=== PATIENT | male | born 1975 | race Caucasian/White ===

== ENCOUNTER 2017-01-29 20:47 | Emergency (ER) | payer MEDICAID ==
[2017-01-30] MEDS ORDERED: Lidocaine 1% with EPINEPHrine 1:100,000 50 ML MDV INJECT STA (00:07)
[2017-01-30] MEDS ORDERED: Silver Nitrate Applicator Each TOP ONE (00:08)
--- NOTE | 2017-01-30 00:41 | EDM.PDOC ---
ED HPI GENERAL MEDICAL PROBLEM - General Chief Complaint: Laceration Stated Complaint: L RING FINGER CUT Time Seen by Provider: 01/30/17 00:06 Source of Information: Reports: Patient, RN Notes Reviewed History Limitations: Reports: No Limitations - History of Present Illness INITIAL COMMENTS - FREE TEXT/NARRATIVE: 00.06 drove himself here Chief complaint Bleeding wound left ring finger History of present illness 41-year-old male, Moshe, was preparing ribs Accidentally sliced of skin on the tip of his left ring finger. Unable to control bleeding Tetanus status up-to-date History hepatitis B Left 4-Ring finger Pain Score (Numeric/FACES): 3 - Related Data Allergies Allergy/AdvReac Type Severity Reaction Status Date / Time No Known Allergies Allergy Verified 01/29/17 23:39 Home Meds: Home Meds Cyanocobalamin (Vitamin B-12) [Vitamin B-12] 1,000 mcg PO DAILY 02/23/14 [ History] Methadone HCl [Methadone] 87 mg PO DAILY 02/23/14 [History] Multivitamin [Multi Vitamin Daily] 1 each PO BID 02/23/14 [History] Omeprazole [Prilosec] 20 mg PO DAILY 02/23/14 [History] Pedi Multivit #22/Vit D3/Vit K [Multivitamins Chewables Tablet] 1 tab PO BID [History] Vitamin B Complex [B Complex] 1 tab PO DAILY 02/23/14 [History] Amiodarone [Cordarone] 200 mg PO DAILY 01/29/17 [History] Magnesium Oxide [Magnesium] 400 mg PO BID 01/29/17 [History] Ondansetron [Zofran ODT] 4 mg PO ASDIRECTED 01/29/17 [History] Potassium Chloride [Klor-Con M20] 20 meq PO BID 01/29/17 [History] Past Medical History Cardiovascular History: Reports: Heart Murmur, Prior Cardiac Arrest Gastrointestinal History: Reports: Hepatitis Neurological History: Reports: Concussion Psychiatric History: Reports: Addiction - Infectious Disease History Infectious Disease History: Reports: Chicken Pox, Hepatitis B - Past Surgical History GI Surgical History: Reports: Bariatric Procedure Social & Family History - Tobacco Use Smoking Status *Q: Current Every Day Smoker Years of Tobacco use: 19 Packs/Tins Daily: 0.5 Used Tobacco, but Quit: No Second Hand Smoke Exposure: Yes - Caffeine Use Caffeine Use: Reports: Coffee - Alcohol Use Days Per Week of Alcohol Use: 2 Number of Drinks Per Day: 4 Total Drinks Per Week: 8 - Recreational Drug Use Recreational Drug Use: No ED ROS GENERAL - Review of Systems Review Of Systems: ROS reveals no pertinent complaints other than HPI. Skin: Reports: Other (wound left ring finger) ED EXAM, SKIN/RASH Exam: See Below Exam Limited By: No Limitations General Appearance: Alert, No Apparent Distress, Other (mild elevation blood pressure otherwise vital signs normal, wound confined to left ring finger) Respiratory/Chest: No Respiratory Distress Cardiovascular: Normal Peripheral Pulses, Regular Rate, Rhythm Extremities: Other (skin avulsion 0.7 x 0.7 cm tip of left ring finger, no tendon fingernail involvement) Neurological: Alert, Oriented Skin: Warm, Normal Color, No Rash Course - Vital Signs Last Recorded V/S: Last Vital Signs Temp 36.5 C 01/29/17 23:43 Pulse 69 01/29/17 23:43 Resp 16 01/29/17 23:43 BP 148/84 H 01/29/17 23:43 Pulse Ox 99 01/29/17 23:43 - Orders/Labs/Meds Meds: Medications Discontinued Medications Generic Name Dose Route Start Last Admin Trade Name Reema PRN Reason Stop Dose Admin Lidocaine/Epinephrine 2 ml 01/30/17 00:07 01/30/17 00:32 Xylocaine 1% With Epinephrine 1:100,000 INJECT 01/30/17 00:08 2 ml ONETIME STA Administration Silver Nitrate 1 each 01/30/17 00:08 01/30/17 00:31 Silver Nitrate TOP 01/30/17 00:09 1 each ONETIME ONE Administration - Re-Assessments/Exams Free Text/Narrative Re-Assessment/Exam: 01/30/17 00:40 41-year-old male with work-related evulsion laceration of skin of the tip of the left ring finger Not suturable Cleansed with Hibiclens 1% lidocaine with epinephrine local Silver nitrate cautery Dressing with nonstick materials Note for work Departure - Departure Time of Disposition: 00:42 Disposition: Home, Self-Care 01 Condition: Good Clinical Impression: Laceration of finger of left hand without damage to nail Qualifiers: Encounter type: initial encounter Finger: ring finger Foreign body presence: without foreign body Qualified Code(s): S61.215A - Laceration without foreign body of left ring finger without damage to nail, initial encounter - Discharge Information Instructions: Laceration Care, Adult, [id number] Referrals: Mirna Phan NP [Primary Care Provider] - Forms: ED Department Discharge, ED Return to Work/School Form Additional Instructions: leave dressing in place at least 24 hours before changing It's anticipated there will still be some blood oozing from the finger so make sure you use a fingertip styled bandage which will fit the finger better. your tetanus status is up-to-date there is a note for 2 days off work
== END 2017-01-30 01:07 | disposition home or self-care (01) ==
LOC: JP.ED 20:47
DX: S61.215A Laceration without foreign body of left ring finger without damage to nail, initial encounter (principal); W45.8XXA Other foreign body or object entering through skin, initial encounter; Z79.899 Other long term (current) drug therapy; F17.210 Nicotine dependence, cigarettes, uncomplicated
CPT/HCPCS: 12001; 99282; 99283; A4217

== ENCOUNTER 2017-09-11 10:59 | Emergency (ER) | payer MEDICAID ==
--- NOTE | 2017-09-11 12:57 | EDM.PDOC ---
ED HPI GENERAL MEDICAL PROBLEM - General Chief Complaint: Gastrointestinal Problem Stated Complaint: BLEEDING FROM BACK SIDE Time Seen by Provider: 09/11/17 12:40 Source of Information: Reports: Patient History Limitations: Reports: No Limitations - History of Present Illness INITIAL COMMENTS - FREE TEXT/NARRATIVE: 42 yo male presents after passing some blood into his clothing while at work today. Has no hx of this in the past. Did pass a very large stool yesterday. Has no hx of hemorrhoids. No FHx of colonic issues. No abdominal pain. Drinks heavily since coming off his methadone. Not taking any NSAID's or anticoagulants. Platelets 02/03/14 were 260k Onset: Today Onset Date: 09/11/17 Onset Time: 11:00 Duration: Minutes:, Resolved Prior to Arrival Location: Reports: Other (rectal) - Related Data Allergies Allergy/AdvReac Type Severity Reaction Status Date / Time No Known Allergies Allergy Verified 09/11/17 12:16 Home Meds: Home Meds Cyanocobalamin (Vitamin B-12) [Vitamin B-12] 1,000 mcg PO DAILY 02/23/14 [ History] Methadone HCl [Methadone] 87 mg PO DAILY 02/23/14 [History] Multivitamin [Multi Vitamin Daily] 1 each PO BID 02/23/14 [History] Omeprazole [Prilosec] 20 mg PO DAILY 02/23/14 [History] Pedi Multivit #22/Vit D3/Vit K [Multivitamins Chewables Tablet] 1 tab PO BID [History] Vitamin B Complex [B Complex] 1 tab PO DAILY 02/23/14 [History] Amiodarone [Cordarone] 200 mg PO DAILY 01/29/17 [History] Magnesium Oxide [Magnesium] 400 mg PO BID 01/29/17 [History] Ondansetron [Zofran ODT] 4 mg PO ASDIRECTED 01/29/17 [History] Potassium Chloride [Klor-Con M20] 20 meq PO BID 01/29/17 [History] Past Medical History Cardiovascular History: Reports: Heart Murmur, Prior Cardiac Arrest Gastrointestinal History: Reports: Hepatitis Neurological History: Reports: Concussion Psychiatric History: Reports: Addiction - Infectious Disease History Infectious Disease History: Reports: Hepatitis B - Past Surgical History GI Surgical History: Reports: Bariatric Procedure Social & Family History - Tobacco Use Smoking Status *Q: Unknown Ever Smoked - Caffeine Use Caffeine Use: Reports: Coffee ED ROS GENERAL - Review of Systems Review Of Systems: See Below Constitutional: Reports: No Symptoms HEENT: Reports: No Symptoms Respiratory: Reports: No Symptoms Cardiovascular: Reports: No Symptoms Endocrine: Reports: No Symptoms GI/Abdominal: Reports: Other (dark red blood only per rectum, not during a BM, just leaked out onto his shorts.) : Reports: No Symptoms Musculoskeletal: Reports: No Symptoms Skin: Reports: No Symptoms Neurological: Reports: No Symptoms ED EXAM, GI/ABD - Physical Exam Exam: See Below Exam Limited By: No Limitations General Appearance: Alert, WD/WN, No Apparent Distress Eyes: Bilateral: Normal Appearance Ears: Normal External Exam, Normal Canal, Hearing Grossly Normal, Normal TMs Nose: Normal Inspection, Normal Mucosa, No Blood Throat/Mouth: Normal Inspection, Normal Lips, Normal Oropharynx, Normal Voice, No Airway Compromise Head: Atraumatic, Normocephalic Neck: Normal Inspection Respiratory/Chest: No Respiratory Distress, Lungs Clear, Normal Breath Sounds, No Accessory Muscle Use Cardiovascular: Regular Rate, Rhythm, No Edema GI/Abdominal Exam: Normal Bowel Sounds, Soft, Non-Tender, No Distention Back Exam: Normal Inspection. No: CVA Tenderness (R), CVA Tenderness (L) Extremities: Other (many bilateral LE varicosities.) Neurological: Alert, Oriented, CN II-XII Intact, Normal Cognition, No Motor/ Sensory Deficits Psychiatric: Normal Affect, Normal Mood Skin Exam: Warm, Dry, Intact, Normal Color, No Rash Lymphatic: No Adenopathy Course - Vital Signs Last Recorded V/S: Last Vital Signs Temp 36.4 C 09/11/17 12:16 Pulse 72 09/11/17 12:16 Resp 16 09/11/17 12:16 BP 139/85 09/11/17 12:16 Pulse Ox 97 09/11/17 12:16 Orthostatic Blood Pressure [ 122/86 Standing] Orthostatic Blood Pressure [ 133/80 Sitting] Orthostatic Blood Pressure [ 134/78 Supine] - Orders/Labs/Meds Orders: Active Orders 24 hr Category Date Time Status Orthostatic Vital Signs [RC] ASDIRECTED Care 09/11/17 12:46 Active Labs: Laboratory Tests 09/11/17 09/11/17 Range/Units 12:52 12:52 WBC 4.6 (4.5-11.0) K/uL RBC 4.82 (4.30-5.90) M/uL Hgb 14.4 (12.0-15.0) g/dL Hct 41.8 (40.0-54.0) % MCV 87 (80-98) fL MCH 30 (27-31) pg MCHC 34 (32-36) % Plt Count 77 L (150-400) K/uL Sodium 142 (140-148) mmol/L Potassium 3.9 (3.6-5.2) mmol/L Chloride 107 (100-108) mmol/L Carbon Dioxide 22 (21-32) mmol/L Anion Gap 13.1 (5.0-14.0) mmol/L BUN 8 (7-18) mg/dL Creatinine 0.8 (0.8-1.3) mg/dL Est Cr Clr Drug Dosing 120.29 mL/min Estimated GFR (MDRD) > 60 (>60) Glucose 104 (74-106) mg/dL Calcium 8.7 (8.5-10.1) mg/dL Total Bilirubin 0.9 (0.2-1.0) mg/dL AST 44 H (15-37) U/L ALT 26 (12-78) U/L Alkaline Phosphatase 103 (46-116) U/L Total Protein 7.8 (6.4-8.2) g/dL Albumin 3.4 (3.4-5.0) g/dL Globulin 4.4 H (2.3-3.5) g/dL Albumin/Globulin Ratio 0.8 L (1.2-2.2) Departure - Departure Time of Disposition: 13:45 Disposition: Home, Self-Care 01 Condition: Fair Clinical Impression: Rectal bleeding, Excessive drinking alcohol - Discharge Information Referrals: PCP,None [Primary Care Provider] - Forms: ED Department Discharge - My Orders Last 24 Hours: My Active Orders 09/11/17 12:46 Orthostatic Vital Signs [RC] ASDIRECTED - Assessment/Plan Last 24 Hours: My Active Orders 09/11/17 12:46 Orthostatic Vital Signs [RC] ASDIRECTED
== END 2017-09-11 13:53 | disposition home or self-care (01) ==
LOC: JP.ED 10:59
DX: K62.5 Hemorrhage of anus and rectum (principal); Z79.899 Other long term (current) drug therapy
CPT/HCPCS: 36415; 80053; 85027; 99284

== ENCOUNTER 2019-06-03 16:16 | Emergency (ER) | payer MEDICAID ==
--- NOTE | 2019-06-03 16:29 | EDM.PDOCBH ---
ED HPI GENERAL MEDICAL PROBLEM - General Chief Complaint: Drug or Alcohol Abuse Stated Complaint: MEDICAL VIA [facility] Time Seen by Provider: 06/03/19 16:23 Source of Information: Reports: Patient History Limitations: Reports: No Limitations - History of Present Illness INITIAL COMMENTS - FREE TEXT/NARRATIVE: pt arrived fter injecting 115 mg of methadone in his leg vein. His saw him do thois and watched him. He was passed out shortly and she gave him narcan. Pt also did some drinking 3-4 drinks today. He has not been part of the methadone program. He has been completely off of everything. Onset: Today, Sudden Duration: Hour(s): Location: Reports: Generalized, Other (pt injected 115 mg of metadone iv. He has not used for a long time so this appeared to hit him hard. He has injected methadone in the past. ) - Related Data Allergies Allergy/AdvReac Type Severity Reaction Status Date / Time No Known Allergies Allergy Verified 02/20/18 09:54 Home Meds: Home Meds Cyanocobalamin (Vitamin B-12) [Vitamin B-12] 1,000 mcg PO DAILY 02/23/14 [ History] Multivitamin [Multi Vitamin Daily] 1 each PO BID 02/23/14 [History] Omeprazole [Prilosec] 20 mg PO DAILY 02/23/14 [History] Pedi Multivit #22/Vit D3/Vit K [Multivitamins Chewables Tablet] 1 tab PO BID [History] Vitamin B Complex [B Complex] 1 tab PO DAILY 02/23/14 [History] Amiodarone [Cordarone] 200 mg PO DAILY 01/29/17 [History] Magnesium Oxide [Magnesium] 400 mg PO BID 01/29/17 [History] Ondansetron [Zofran ODT] 4 mg PO ASDIRECTED 01/29/17 [History] Potassium Chloride [Klor-Con M20] 20 meq PO BID 01/29/17 [History] Past Medical History Cardiovascular History: Reports: Heart Murmur, Prior Cardiac Arrest Gastrointestinal History: Reports: Hepatitis Neurological History: Reports: Concussion Psychiatric History: Reports: Addiction Endocrine/Metabolic History: Reports: Obesity/BMI 30+ - Infectious Disease History Infectious Disease History: Reports: Hepatitis B - Past Surgical History GI Surgical History: Reports: Bariatric Procedure Social & Family History - Caffeine Use Caffeine Use: Reports: Coffee ED ROS GENERAL - Review of Systems Review Of Systems: See Below Constitutional: Reports: Other (pt passed out after injecting methadone. ) HEENT: Reports: No Symptoms Respiratory: Reports: No Symptoms Cardiovascular: Reports: No Symptoms Endocrine: Reports: No Symptoms GI/Abdominal: Reports: No Symptoms Musculoskeletal: Reports: No Symptoms Skin: Reports: No Symptoms ED EXAM, BEHAVIORAL HEALTH - Physical Exam Exam: See Below Text/Narrative:: pt became unresponsive. after injecting 115 of methadone IV. He also had 3-4 drinks. He has been clean for 3.5 monthes, bnot using anything. Exam Limited By: No Limitations General Appearance: Alert, No Apparent Distress, Other (pupils show very small pupils. ) Ears: Normal TMs Nose: Normal Inspection Throat/Mouth: Normal Inspection Head: Atraumatic Neck: Normal Inspection Respiratory/Chest: No Respiratory Distress Cardiovascular: Regular Rate, Rhythm GI/Abdominal: Soft, Non-Tender (Male) Exam: Deferred Rectal (Males) Exam: Deferred Back Exam: Normal Inspection Extremities: Normal Inspection Neurological: Alert, Normal Cognition, Oriented x 3, Other (pt has had 2 doses of narcan. ) Psychiatric: Alert, Normal Cognition COURSE, BEHAVIORAL HEALTH COMP - Course Vital Signs: Last Vital Signs Temp 35.5 C L 06/03/19 16:23 Pulse 81 06/03/19 16:23 Resp 20 06/03/19 16:23 BP 140/91 H 06/03/19 16:23 Pulse Ox 92 L 06/03/19 16:23 Orders, Labs, Meds: Active Orders 24 hr Category Date Time Status Sodium Chloride 0.9% [Normal Saline] 1,000 ml Med 06/03/19 16:30 Active IV ASDIRECTED Sodium Chloride 0.9% [Normal Saline] 1,000 ml Med 06/03/19 17:15 Active IV ASDIRECTED Medication Orders Sodium Chloride (Normal Saline) 1,000 mls @ 999 mls/hr IV ASDIRECTED SHAKIRA Last Admin: 06/03/19 16:58 Dose: 999 mls/hr Sodium Chloride (Normal Saline) 1,000 mls @ 999 mls/hr IV ASDIRECTED SHAKIRA Laboratory Tests 06/03/19 06/03/19 06/03/19 Range/Units 16:20 16:22 16:31 WBC 8.9 (4.5-11.0) K/uL RBC 4.63 (4.30-5.90) M/uL Hgb 12.0 D (12.0-15.0) g/dL Hct 37.6 L (40.0-54.0) % MCV 81 (80-98) fL MCH 26 L (27-31) pg MCHC 32 (32-36) % Plt Count 140 L (150-400) K/uL Neut % (Auto) 72 H (36-66) % Lymph % (Auto) 17 L (24-44) % [place] % (Auto) 9 H (2-6) % Eos % (Auto) 2 (2-4) % Baso % (Auto) 1 (0-1) % Sodium (140-148) mmol/L Potassium (3.6-5.2) mmol/L Chloride (100-108) mmol/L Carbon Dioxide (21-32) mmol/L Anion Gap (5.0-14.0) mmol/L BUN (7-18) mg/dL Creatinine (0.8-1.3) mg/dL Est Cr Clr Drug Dosing mL/min Estimated GFR (MDRD) (>60) Glucose (74-106) mg/dL Calcium (8.5-10.1) mg/dL Total Bilirubin (0.2-1.0) mg/dL AST (15-37) U/L ALT (12-78) U/L Alkaline Phosphatase (46-116) U/L Total Protein (6.4-8.2) g/dL Albumin (3.4-5.0) g/dL Globulin (2.3-3.5) g/dL Albumin/Globulin Ratio (1.2-2.2) Urine Color Yellow (YELLOW) Urine Appearance Clear (CLEAR) Urine pH 5.0 (5.0-8.0) Ur Specific [place] >= 1.030 (1.008-1.030) Urine Protein 30 H (NEGATIVE) mg/dL Urine Glucose (UA) Negative (NEGATIVE) mg/dL Urine Ketones Negative (NEGATIVE) mg/dL Urine Occult Blood Negative (NEGATIVE) Urine Nitrite Negative (NEGATIVE) Urine Bilirubin Negative (NEGATIVE) Urine Urobilinogen 0.2 (0.2-1.0) EU/dL Ur Leukocyte Esterase Negative (NEGATIVE) Urine RBC 0-5 (0-5) Urine WBC Not seen (0-5) Ur Epithelial Cells Not seen Amorphous Sediment Many Urine Bacteria Not seen Urine Mucus Not seen Urine Opiates Screen Negative (NEGATIVE) Ur Oxycodone Screen Presumptive positive H (NEGATIVE) Urine Methadone Screen Presumptive positive H (NEGATIVE) Ur Propoxyphene Screen Negative (NEGATIVE) Ur Barbiturates Screen Negative (NEGATIVE) Ur Tricyclics Screen Negative (NEGATIVE) Ur Phencyclidine Scrn Negative (NEGATIVE) Ur Amphetamine Screen Negative (NEGATIVE) U Methamphetamines Scrn Negative (NEGATIVE) Urine MDMA Screen Negative (NEGATIVE) U Benzodiazepines Scrn Negative (NEGATIVE) U Cocaine Metab Screen Negative (NEGATIVE) U Marijuana (THC) Screen Negative (NEGATIVE) Ethyl Alcohol mg/dL 06/03/19 06/03/19 Range/Units 16:31 16:31 WBC (4.5-11.0) K/uL RBC (4.30-5.90) M/uL Hgb (12.0-15.0) g/dL Hct (40.0-54.0) % MCV (80-98) fL MCH (27-31) pg MCHC (32-36) % Plt Count (150-400) K/uL Neut % (Auto) (36-66) % Lymph % (Auto) (24-44) % [place] % (Auto) (2-6) % Eos % (Auto) (2-4) % Baso % (Auto) (0-1) % Sodium 141 (140-148) mmol/L Potassium 3.5 L (3.6-5.2) mmol/L Chloride 104 (100-108) mmol/L Carbon Dioxide 23 (21-32) mmol/L Anion Gap 17.5 H (5.0-14.0) mmol/L BUN 10 (7-18) mg/dL Creatinine 0.9 (0.8-1.3) mg/dL Est Cr Clr Drug Dosing 108.15 mL/min Estimated GFR (MDRD) > 60 (>60) Glucose 93 (74-106) mg/dL Calcium 8.3 L (8.5-10.1) mg/dL Total Bilirubin 1.1 H (0.2-1.0) mg/dL AST 42 H (15-37) U/L ALT 24 (12-78) U/L Alkaline Phosphatase 160 H (46-116) U/L Total Protein 8.3 H (6.4-8.2) g/dL Albumin 3.3 L (3.4-5.0) g/dL Globulin 5.0 H (2.3-3.5) g/dL Albumin/Globulin Ratio 0.7 L (1.2-2.2) Urine Color (YELLOW) Urine Appearance (CLEAR) Urine pH (5.0-8.0) Ur Specific [place] (1.008-1.030) Urine Protein (NEGATIVE) mg/dL Urine Glucose (UA) (NEGATIVE) mg/dL Urine Ketones (NEGATIVE) mg/dL Urine Occult Blood (NEGATIVE) Urine Nitrite (NEGATIVE) Urine Bilirubin (NEGATIVE) Urine Urobilinogen (0.2-1.0) EU/dL Ur Leukocyte Esterase (NEGATIVE) Urine RBC (0-5) Urine WBC (0-5) Ur Epithelial Cells Amorphous Sediment Urine Bacteria Urine Mucus Urine Opiates Screen (NEGATIVE) Ur Oxycodone Screen (NEGATIVE) Urine Methadone Screen (NEGATIVE) Ur Propoxyphene Screen (NEGATIVE) Ur Barbiturates Screen (NEGATIVE) Ur Tricyclics Screen (NEGATIVE) Ur Phencyclidine Scrn (NEGATIVE) Ur Amphetamine Screen (NEGATIVE) U Methamphetamines Scrn (NEGATIVE) Urine MDMA Screen (NEGATIVE) U Benzodiazepines Scrn (NEGATIVE) U Cocaine Metab Screen (NEGATIVE) U Marijuana (THC) Screen (NEGATIVE) Ethyl Alcohol 116 mg/dL Medications Generic Name Dose Route Start Last Admin Trade Name Freq PRN Reason Stop Dose Admin Sodium Chloride 1,000 mls @ 999 mls/hr 06/03/19 16:30 06/03/19 16:58 Normal Saline IV 999 mls/hr ASDIRECTED SHAKIRA Administration Sodium Chloride 1,000 mls @ 999 mls/hr 06/03/19 17:15 Normal Saline IV ASDIRECTED SHAKIRA Discontinued Medications Generic Name Dose Route Start Last Admin Trade Name Freq PRN Reason Stop Dose Admin Naloxone HCl 0.4 mg 06/03/19 16:30 06/03/19 16:51 Narcan IVPUSH 06/03/19 16:31 0.4 mg ONETIME ONE Administration Medical Clearance: 06/03/19 17:16 pt has had atotal of 3 does of narcan. He is aklert and pleasant at this time. He will be given 2 liters of fluid and may need a narcan drip if having symproms. Departure - Departure Time of Disposition: 17:17 Disposition: Admitted As Inpatient 66 Condition: Fair Clinical Impression: Methadone overdose, Intoxication - Discharge Information Referrals: PCP,None [Primary Care Provider] - Forms: ED Department Discharge Care Plan Goals: admit to Dr Cain. Sepsis Event Note - Focused Exam Vital Signs: Vital Signs Temp Pulse Resp BP Pulse Ox 06/03/19 16:23 35.5 C L 81 20 140/91 H 92 L 06/03/19 16:18 35.0 C L 83 16 152/92 H 95 Date Exam was Performed: 06/03/19 Time Exam was Performed: 17:16 - My Orders Last 24 Hours: My Active Orders 06/03/19 16:30 Sodium Chloride 0.9% [Normal Saline] 1,000 ml IV ASDIRECTED 06/03/19 17:15 Sodium Chloride 0.9% [Normal Saline] 1,000 ml IV ASDIRECTED - Assessment/Plan Last 24 Hours: My Active Orders 06/03/19 16:30 Sodium Chloride 0.9% [Normal Saline] 1,000 ml IV ASDIRECTED 06/03/19 17:15 Sodium Chloride 0.9% [Normal Saline] 1,000 ml IV ASDIRECTED
[2019-06-03] MEDS ORDERED: Naloxone 0.4 MG/ML SDV IVPUSH ONE (16:30)
[2019-06-03] MEDS ORDERED: Sodium Chloride 0.9% 1,000 ML IV SCH ×2 (16:30→17:15)
--- NOTE | 2019-06-03 17:50 | PCM.HP.2 ---
H&P History of Present Illness - General Date of Service: 06/03/19 Admit Problem/Dx: Admission Diagnosis/Problem Admission Diagnosis/Problem Drug overdose Source of Information: Patient, Provider History Limitations: Reports: No Limitations - History of Present Illness Initial Comments - Free Text/Narative: CC: I was stupid HPI: Ismael presented to the emergency room today after shortly after injecting methadone into a vein in his leg. After he passed out his called 911. She did give him Narcan (she has some available since she is on the methadone program). He received a second dose of Narcan in the ambulance on the way here. At this time he says he feels fine. No complaints of headache , blurry vision, chest pain or shortness of breath. No abdominal pain or nausea. He has not had any fevers. Poison control was contacted and they recommended admission for observation overnight given the large quantity of methadone injected intravenously. Work-up in the emergency room suggested mild intoxication and mild dehydration. Vital signs have been stable. He has not been hypoxic. He will be admitted for observation per poison control recommendations. - Related Data Allergies/Adverse Reactions: Allergies Allergy/AdvReac Type Severity Reaction Status Date / Time No Known Allergies Allergy Verified 02/20/18 09:54 Home Medications: Home Meds Cyanocobalamin (Vitamin B-12) [Vitamin B-12] 1,000 mcg PO DAILY 02/23/14 [ History] Multivitamin [Multi Vitamin Daily] 1 each PO BID 02/23/14 [History] Omeprazole [Prilosec] 20 mg PO DAILY 02/23/14 [History] Pedi Multivit #22/Vit D3/Vit K [Multivitamins Chewables Tablet] 1 tab PO BID [History] Vitamin B Complex [B Complex] 1 tab PO DAILY 02/23/14 [History] Amiodarone [Cordarone] 200 mg PO DAILY 01/29/17 [History] Magnesium Oxide [Magnesium] 400 mg PO BID 01/29/17 [History] Ondansetron [Zofran ODT] 4 mg PO ASDIRECTED 01/29/17 [History] Potassium Chloride [Klor-Con M20] 20 meq PO BID 01/29/17 [History] Past Medical History Other HEENT History: bloody lip Cardiovascular History: Reports: Heart Murmur, Prior Cardiac Arrest Gastrointestinal History: Reports: Hepatitis Neurological History: Reports: Concussion Psychiatric History: Reports: Addiction Endocrine/Metabolic History: Reports: Obesity/BMI 30+ - Infectious Disease History Infectious Disease History: Reports: Hepatitis B - Past Surgical History GI Surgical History: Reports: Bariatric Procedure Social & Family History - Tobacco Use Years of Tobacco use: 25 Packs/Tins Daily: 0.2 - Caffeine Use Caffeine Use: Reports: Coffee - Alcohol Use Days Per Week of Alcohol Use: 1 Number of Drinks Per Day: 3 Total Drinks Per Week: 3 Date of Last Drink: 06/03/19 - Recreational Drug Use Recreational Drug Use: Yes Recreational Drug Type: Reports: Methamphetamine Recreational Drug Use Frequency: Daily H&P Review of Systems - Review of Systems: Review Of Systems: See Below Free Text/Narrative: A complete 12 point review of systems was obtained. Pertinent positives and negatives are noted in the history of present illness. All other systems were reviewed and were negative except as noted. Exam - Exam Exam: See Below - Vital Signs Vital Signs: Last Vital Signs Temp 35.5 C L 06/03/19 16:23 Pulse 81 06/03/19 16:23 Resp 20 06/03/19 16:23 BP 140/91 H 06/03/19 16:23 Pulse Ox 92 L 06/03/19 16:23 Weight: 102.058 kg - Exam Quality Assessment: No: Supplemental Oxygen General: Alert, Oriented, Cooperative. No: Mild Distress HEENT: Conjunctiva Clear, Other (lips cracked and bleeding ). No: Mucosa Moist & Bladen (dry), Scleral Icterus Neck: Supple, Trachea Midline Lungs: Clear to Auscultation, Normal Respiratory Effort Cardiovascular: Regular Rate, Regular Rhythm, Systolic Murmur GI/Abdominal Exam: Normal Bowel Sounds, Soft, No Distention Extremities: No Pedal Edema. No: Increased Warmth Skin: Warm, Dry Neuro Extensive - Mental Status: Alert, Oriented x3, Nl Response to Commands Neuro Extensive - Motor, Sensory, Reflexes: No: Dysarthria, Abnormal Motor Psychiatric: Alert, Normal Affect - Patient Data Lab Results Last 24 hrs: Laboratory Results - last 24 hr 06/03/19 06/03/19 06/03/19 Range/Units 16:20 16:22 16:31 WBC 8.9 (4.5-11.0) K/uL RBC 4.63 (4.30-5.90) M/uL Hgb 12.0 D (12.0-15.0) g/dL Hct 37.6 L (40.0-54.0) % MCV 81 (80-98) fL MCH 26 L (27-31) pg MCHC 32 (32-36) % Plt Count 140 L (150-400) K/uL Neut % (Auto) 72 H (36-66) % Lymph % (Auto) 17 L (24-44) % [place] % (Auto) 9 H (2-6) % Eos % (Auto) 2 (2-4) % Baso % (Auto) 1 (0-1) % Sodium (140-148) mmol/L Potassium (3.6-5.2) mmol/L Chloride (100-108) mmol/L Carbon Dioxide (21-32) mmol/L Anion Gap (5.0-14.0) mmol/L BUN (7-18) mg/dL Creatinine (0.8-1.3) mg/dL Est Cr Clr Drug Dosing mL/min Estimated GFR (MDRD) (>60) Glucose (74-106) mg/dL Calcium (8.5-10.1) mg/dL Total Bilirubin (0.2-1.0) mg/dL AST (15-37) U/L ALT (12-78) U/L Alkaline Phosphatase (46-116) U/L Total Protein (6.4-8.2) g/dL Albumin (3.4-5.0) g/dL Globulin (2.3-3.5) g/dL Albumin/Globulin Ratio (1.2-2.2) Urine Color Yellow (YELLOW) Urine Appearance Clear (CLEAR) Urine pH 5.0 (5.0-8.0) Ur Specific [place] >= 1.030 (1.008-1.030) Urine Protein 30 H (NEGATIVE) mg/dL Urine Glucose (UA) Negative (NEGATIVE) mg/dL Urine Ketones Negative (NEGATIVE) mg/dL Urine Occult Blood Negative (NEGATIVE) Urine Nitrite Negative (NEGATIVE) Urine Bilirubin Negative (NEGATIVE) Urine Urobilinogen 0.2 (0.2-1.0) EU/dL Ur Leukocyte Esterase Negative (NEGATIVE) Urine RBC 0-5 (0-5) Urine WBC Not seen (0-5) Ur Epithelial Cells Not seen Amorphous Sediment Many Urine Bacteria Not seen Urine Mucus Not seen Urine Opiates Screen Negative (NEGATIVE) Ur Oxycodone Screen Presumptive positive H (NEGATIVE) Urine Methadone Screen Presumptive positive H (NEGATIVE) Ur Propoxyphene Screen Negative (NEGATIVE) Ur Barbiturates Screen Negative (NEGATIVE) Ur Tricyclics Screen Negative (NEGATIVE) Ur Phencyclidine Scrn Negative (NEGATIVE) Ur Amphetamine Screen Negative (NEGATIVE) U Methamphetamines Scrn Negative (NEGATIVE) Urine MDMA Screen Negative (NEGATIVE) U Benzodiazepines Scrn Negative (NEGATIVE) U Cocaine Metab Screen Negative (NEGATIVE) U Marijuana (THC) Screen Negative (NEGATIVE) Ethyl Alcohol mg/dL 06/03/19 06/03/19 Range/Units 16:31 16:31 WBC (4.5-11.0) K/uL RBC (4.30-5.90) M/uL Hgb (12.0-15.0) g/dL Hct (40.0-54.0) % MCV (80-98) fL MCH (27-31) pg MCHC (32-36) % Plt Count (150-400) K/uL Neut % (Auto) (36-66) % Lymph % (Auto) (24-44) % [place] % (Auto) (2-6) % Eos % (Auto) (2-4) % Baso % (Auto) (0-1) % Sodium 141 (140-148) mmol/L Potassium 3.5 L (3.6-5.2) mmol/L Chloride 104 (100-108) mmol/L Carbon Dioxide 23 (21-32) mmol/L Anion Gap 17.5 H (5.0-14.0) mmol/L BUN 10 (7-18) mg/dL Creatinine 0.9 (0.8-1.3) mg/dL Est Cr Clr Drug Dosing 108.15 mL/min Estimated GFR (MDRD) > 60 (>60) Glucose 93 (74-106) mg/dL Calcium 8.3 L (8.5-10.1) mg/dL Total Bilirubin 1.1 H (0.2-1.0) mg/dL AST 42 H (15-37) U/L ALT 24 (12-78) U/L Alkaline Phosphatase 160 H (46-116) U/L Total Protein 8.3 H (6.4-8.2) g/dL Albumin 3.3 L (3.4-5.0) g/dL Globulin 5.0 H (2.3-3.5) g/dL Albumin/Globulin Ratio 0.7 L (1.2-2.2) Urine Color (YELLOW) Urine Appearance (CLEAR) Urine pH (5.0-8.0) Ur Specific [place] (1.008-1.030) Urine Protein (NEGATIVE) mg/dL Urine Glucose (UA) (NEGATIVE) mg/dL Urine Ketones (NEGATIVE) mg/dL Urine Occult Blood (NEGATIVE) Urine Nitrite (NEGATIVE) Urine Bilirubin (NEGATIVE) Urine Urobilinogen (0.2-1.0) EU/dL Ur Leukocyte Esterase (NEGATIVE) Urine RBC (0-5) Urine WBC (0-5) Ur Epithelial Cells Amorphous Sediment Urine Bacteria Urine Mucus Urine Opiates Screen (NEGATIVE) Ur Oxycodone Screen (NEGATIVE) Urine Methadone Screen (NEGATIVE) Ur Propoxyphene Screen (NEGATIVE) Ur Barbiturates Screen (NEGATIVE) Ur Tricyclics Screen (NEGATIVE) Ur Phencyclidine Scrn (NEGATIVE) Ur Amphetamine Screen (NEGATIVE) U Methamphetamines Scrn (NEGATIVE) Urine MDMA Screen (NEGATIVE) U Benzodiazepines Scrn (NEGATIVE) U Cocaine Metab Screen (NEGATIVE) U Marijuana (THC) Screen (NEGATIVE) Ethyl Alcohol 116 mg/dL Result Diagrams: 06/03/19 16:31 06/03/19 16:31 Sepsis Event Note - Evaluation Sepsis Screening Result: No Definite Risk - Focused Exam Vital Signs: Vital Signs Temp Pulse Resp BP Pulse Ox 06/03/19 16:23 35.5 C L 81 20 140/91 H 92 L 06/03/19 16:18 35.0 C L 83 16 152/92 H 95 Date Exam was Performed: 06/03/19 Time Exam was Performed: 18:40 *Q Meaningful Use (ADM) - VTE Risk Assess *Q Each Risk Factor Represents 1 Point: Age 41 - 59 years, Obesity ( BMI > 25 kg/m2 ) Total Score 1 Point Risk Factors: 2 Each Risk Factor Represents 2 Points: None Total Score 2 Point Risk Factors: 0 Each Risk Factor Represents 3 Points: None Total Score 3 Point Risk Factors: 0 Each Risk Factor Represents 5 Points: None Total Score 5 Point Risk Factors: 0 Venous Thromboembolism Risk Factor Score *Q: 2 - Problem List (1) Methadone overdose SNOMED Code(s): 651628657 ICD Code: T40.3X1A - POISONING BY METHADONE, ACCIDENTAL (UNINTENTIONAL), INIT Status: Acute Current Visit: Yes Qualifiers: Encounter type: initial encounter Injury intent: accidental or unintentional Qualified Code(s): T40.3X1A - Poisoning by methadone, accidental (unintentional), initial encounter (2) Intoxication SNOMED Code(s): 51222123 ICD Code: [id number] - Status: Acute Current Visit: Yes Problem List Initiated/Reviewed/Updated: Yes Orders Last 24hrs: Active Orders 24 hr Category Date Time Status Patient Status Manage Transfer [TRANSFER] Routine ADT 06/03/19 17:44 Ordered Sodium Chloride 0.9% [Normal Saline] 1,000 ml Med 06/03/19 16:30 Active IV ASDIRECTED Sodium Chloride 0.9% [Normal Saline] 1,000 ml Med 06/03/19 17:15 Active IV ASDIRECTED Resuscitation Status Routine Resus Stat 06/03/19 17:45 Ordered Medication Orders Sodium Chloride (Normal Saline) 1,000 mls @ 999 mls/hr IV ASDIRECTED SHAKIRA Last Admin: 06/03/19 16:58 Dose: 999 mls/hr Sodium Chloride (Normal Saline) 1,000 mls @ 999 mls/hr IV ASDIRECTED SHAKIRA Assessment/Plan Comment:: ASSESSMENT AND PLAN - Unintentional methadone overdose-patient had been clean for several months but relapsed. He has received 2 doses of Narcan. Currently stable. Poison control did recommend overnight observation given the large quantity of methadone injected. -Cardiac monitoring -Continuous pulse oximetry Alcohol intoxication-mild at this time. No obvious outward evidence for intoxication. He has received IV fluids in the emergency room. Maintenance issues - - DVT prophylaxis -mechanical - GI prophylaxis -not indicated - Nutrition -regular - Gutiérrez catheter -not indicated CODE STATUS -full code Admission justification -patient will be referred observation status for overnight monitoring Disposition -I would anticipate discharge home in the morning Primary care physician -lm Cain M.D. [id number] -around the time the patient was going to be transferred to the room for admission he decided that he wanted to go home instead. I did come back and talk to him and counseled him about the dangers of going home after a methadone injection of his quantity. I was concerned about respiratory depression and potential damage to the brain or even . The patient is willing to accept responsibility and go home AGAINST MEDICAL ADVICE. He is currently stable and able to ambulate. He has not currently intoxicated. Patient did sign the AGAINST MEDICAL ADVICE form and this was witnessed by 2 folks in the emergency room including myself. Kirk Cain MD - Mortality Measure Prognosis:: Good
== END 2019-06-03 18:46 | disposition critical access hospital (66) ==
LOC: JP.ED 16:16 → JP.ICU 17:44 → UNDOADMOB 17:44
DX: F10.129 Alcohol abuse with intoxication, unspecified (principal); T40.3X5A Adverse effect of methadone, initial encounter; E66.9 Obesity, unspecified; Z68.32 Body mass index [BMI] 32.0-32.9, adult; Z79.899 Other long term (current) drug therapy
CPT/HCPCS: 36415; 80053; 80305; 80307; 81001; 85025; 96361; 96374; 99284; J2310; J7030

== ENCOUNTER 2019-06-19 09:50 | Emergency (ER) | payer MEDICAID ==
--- NOTE | 2019-06-19 10:35 | EDM.PDOC ---
ED HPI GENERAL MEDICAL PROBLEM - General Chief Complaint: General Stated Complaint: UPPER ABD PAIN, SORE THROAT, WEAKNESS, CHEST PAINS Time Seen by Provider: 06/19/19 10:27 Source of Information: Reports: Patient History Limitations: Reports: No Limitations - History of Present Illness INITIAL COMMENTS - FREE TEXT/NARRATIVE: Patient presents for evaluation of sore throat, upper abdominal pain, generalized achiness, fatigue beginning approximately 2 weeks ago. He noticed trouble with a sore throat almost 2 weeks ago. He wonders if he has strep throat ? He's been using Chloraseptic spray and throat lozenges with no improvement in symptoms. Beginning roughly 1 week ago he experienced increased fatigue, upper abdominal pain, generalized muscle aches. He strained his left shoulder earlier in the week in addition to all of the previously mentioned items. 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 Throat Pain Score (Numeric/FACES): 7 - Related Data Allergies Allergy/AdvReac Type Severity Reaction Status Date / Time No Known Allergies Allergy Verified 06/19/19 10:15 Home Meds: Home Meds Multivitamin [Multi Vitamin Daily] 1 each PO BID 02/23/14 [History] Vitamin B Complex [B Complex] 1 tab PO DAILY 02/23/14 [History] Past Medical History Other HEENT History: bloody lip Cardiovascular History: Reports: Heart Murmur, Prior Cardiac Arrest Gastrointestinal History: Reports: Hepatitis Neurological History: Reports: Concussion Psychiatric History: Reports: Addiction, Other (See Below) Other Psychiatric History: methadone OD 06/03/19 Endocrine/Metabolic History: Reports: Obesity/BMI 30+ - Infectious Disease History Infectious Disease History: Reports: Chicken Pox - Past Surgical History GI Surgical History: Reports: Bariatric Procedure Social & Family History - Tobacco Use Smoking Status *Q: Current Every Day Smoker Years of Tobacco use: 24 Packs/Tins Daily: 0.5 Used Tobacco, but Quit: No Second Hand Smoke Exposure: Yes - Caffeine Use Caffeine Use: Reports: Energy Drinks - Alcohol Use Days Per Week of Alcohol Use: 0 - Recreational Drug Use Recreational Drug Use: No ED ROS GENERAL - Review of Systems Review Of Systems: See Below Constitutional: Reports: Malaise, Weakness, Fatigue. Denies: Night Sweats HEENT: Reports: Throat Pain. Denies: Ear Pain, Rhinitis, Throat Swelling Respiratory: Reports: No Symptoms Cardiovascular: Reports: No Symptoms GI/Abdominal: Reports: Abdominal Pain (Epigastric region), Diarrhea. Denies: Black Stool, Bloody Stool, Constipation, Vomiting (Since gastric bypass surgery in 2010 he really doesn't vomit any more.) : Reports: No Symptoms Musculoskeletal: Reports: Shoulder Pain (Left shoulder region since injury) Skin: Reports: No Symptoms ED EXAM, GENERAL - Physical Exam Exam: See Below Free Text/Narrative:: Patient is seated on the bed in room 5 in no acute distress. Exam Limited By: No Limitations General Appearance: Alert, Mild Distress Throat/Mouth: Inflammation (No exudate.) Neck: Normal Inspection, Supple Respiratory/Chest: No Respiratory Distress, Lungs Clear Cardiovascular: Regular Rate, Rhythm GI/Abdominal: Soft, No Distention, Tender (Pain on palpation in epigastric region.) Back Exam: Normal Inspection Course - Vital Signs Last Recorded V/S: Last Vital Signs Temp 37.7 C 06/19/19 10:24 Pulse 68 06/19/19 10:24 Resp 16 06/19/19 10:24 BP 129/70 06/19/19 10:24 Pulse Ox 96 06/19/19 10:24 - Orders/Labs/Meds Orders: Active Orders 24 hr Category Date Time Status CULTURE STREP A CONFIRMATION [RM] Stat Lab 06/19/19 10:42 Results STREP SCRN A RAPID W CULT CONF [] Stat Lab 06/19/19 10:38 Ordered Labs: Laboratory Tests 06/19/19 06/19/19 06/19/19 Range/Units 10:51 10:51 10:51 WBC 3.9 L (4.5-11.0) K/uL RBC 4.68 (4.30-5.90) M/uL Hgb 11.9 L (12.0-15.0) g/dL Hct 36.3 L (40.0-54.0) % MCV 78 L (80-98) fL MCH 25 L (27-31) pg MCHC 33 (32-36) % Plt Count 89 L (150-400) K/uL Neut % (Auto) 66 (36-66) % Lymph % (Auto) 14 L (24-44) % [place] % (Auto) 19 H (2-6) % Eos % (Auto) 1 L (2-4) % Baso % (Auto) 1 (0-1) % Sodium 132 L (140-148) mmol/L Potassium 3.5 L (3.6-5.2) mmol/L Chloride 102 (100-108) mmol/L Carbon Dioxide 20 L (21-32) mmol/L Anion Gap 13.5 (5.0-14.0) mmol/L BUN 13 (7-18) mg/dL Creatinine 0.9 (0.8-1.3) mg/dL Est Cr Clr Drug Dosing 104.74 mL/min Estimated GFR (MDRD) > 60 (>60) Glucose 112 H (74-106) mg/dL Calcium 8.2 L (8.5-10.1) mg/dL C-Reactive Protein 1.00 H (0.0-0.3) mg/dL Meds: Medications Discontinued Medications Generic Name Dose Route Start Last Admin Trade Name Reema PRN Reason Stop Dose Admin Acetaminophen 1,000 mg 06/19/19 10:38 06/19/19 10:46 Tylenol Extra Strength PO 06/19/19 10:39 1,000 mg ONETIME ONE Administration Al Hydroxide/Mg Hydroxide 15 0 ml 06/19/19 10:39 06/19/19 10:46 ml/ Lidocaine HCl 15 ml PO 06/19/19 10:40 30 ml ONETIME ONE Administration - Re-Assessments/Exams Free Text/Narrative Re-Assessment/Exam: 06/19/19 10:45 A strep screen was obtained. If negative, given the rest of his symptoms he may have one of the viral syndromes. He'll be given a GI cocktail and Tylenol 1000 mg while other testing is proceeding. 06/19/19 11:57 He felt better following the medication and was asleep when I returned to the room to review tests. Strep test is negative. We discussed that this is likely a persistent virus problem. He should keep adequately hydrated, use analgesics of choice and his favorite hard candy for the sore throat pain. If not improved in a week or so recheck with clinic. Return to ER if feeling worse in anyway. Departure - Departure Time of Disposition: 11:55 Disposition: Home, Self-Care 01 Condition: Good Clinical Impression: Viral syndrome - Discharge Information *PRESCRIPTION DRUG MONITORING PROGRAM REVIEWED*: Not Applicable *COPY OF PRESCRIPTION DRUG MONITORING REPORT IN PATIENT YOVANNY: Not Applicable Referrals: PCP,None [Primary Care Provider] - Forms: ED Department Discharge Additional Instructions: Keep adequate liquid intake going, you're doing a good job with that. Tylenol 1000 mg 3 or 4 times a day or ibuprofen 800 mg 3 times a day for sore throat and other aches. I expect her symptoms will begin to go away over the next week but if not improving, recheck in clinic. As discussed, your strep throat test was negative today. Return to ER if feeling worse. Sepsis Event Note - Evaluation Sepsis Screening Result: No Definite Risk - Focused Exam Vital Signs: Vital Signs Temp Pulse Resp BP Pulse Ox 06/19/19 10:24 37.7 C 68 16 129/70 96 06/19/19 10:10 37.7 C 68 16 129/70 96 Date Exam was Performed: 06/19/19 Time Exam was Performed: 11:57 - My Orders Last 24 Hours: My Active Orders 06/19/19 10:38 STREP SCRN A RAPID W CULT CONF [RM] Stat 06/19/19 10:42 CULTURE STREP A CONFIRMATION [RM] Stat - Assessment/Plan Last 24 Hours: My Active Orders 06/19/19 10:38 STREP SCRN A RAPID W CULT CONF [RM] Stat 06/19/19 10:42 CULTURE STREP A CONFIRMATION [] Stat
[2019-06-19] MEDS ORDERED: Acetaminophen 500 MG Tab PO ONE (10:38)
[2019-06-19] MEDS ORDERED: Alum Hydrox/Mag Hydrox/Simeth 15 ML, Lidocaine 2% 15 ML PO ONE ×2 (10:39)
== END 2019-06-19 12:06 | disposition home or self-care (01) ==
LOC: JP.ED 09:50
DX: B34.9 Viral infection, unspecified (principal); E66.9 Obesity, unspecified; F17.210 Nicotine dependence, cigarettes, uncomplicated
CPT/HCPCS: 36415; 80048; 85025; 86140; 87081; 87880; 99283; A9270